=== PATIENT | female | born 1995 | race African-American/Black ===

== ENCOUNTER 2021-11-09 15:23 | Emergency (ER) | payer SELFPAY ==
[~2021-11-09] VITALS: Ht 170.2 cm; Wt 109.0 kg
[2021-11-09 15:41] VITALS: BP 130/90
[2021-11-09] MEDS ORDERED: IBUP-2030 MT (18:04)
== END 2021-11-09 18:57 | disposition home or self-care (01) ==
LOC: ER 15:23
DX: S82.831A Other fracture of upper and lower end of right fibula, initial encounter for closed fracture (principal); Z91.018 Allergy to other foods; X50.1XXA Overexertion from prolonged static or awkward postures, initial encounter; Y93.89 Activity, other specified; Y92.013 Bedroom of single-family (private) house as the place of occurrence of the external cause
CPT/HCPCS: 29515; 73610; 99283